=== PATIENT | female | born 1955 | race Two or more races ===

== ENCOUNTER 2017-11-09 12:02 | Outpatient (CLI) | payer OTHER ==
[~2017-11-09 12:02] MED LIST: ETODOLAC200 MG PO; EVISTA60 MG PO; LIRICA; ULTRACET
== END 2017-11-13 12:30 | disposition home or self-care (01) ==
LOC: RAD 12:02
DX: R10.32 Left lower quadrant pain (principal); K57.30 Diverticulosis of large intestine without perforation or abscess without bleeding; K59.04 Chronic idiopathic constipation

== ENCOUNTER 2018-04-04 06:12 | Day surgery (SDC) | payer OTHER | END 2018-04-04 10:25 | disposition home or self-care (01) | LOC: AMB-ENDOS 06:12 | DX: D12.2 Benign neoplasm of ascending colon (principal); D12.3 Benign neoplasm of transverse colon ==

== ENCOUNTER 2022-03-09 10:45 | Inpatient (IN) | payer OTHER ==
[~2022-03-09] VITALS: Ht 154.9 cm; Wt 48.5 kg
[~2022-03-09 10:45] MED LIST changes: +CIPRO500 MG PO; +DICY20TA PO; +METRONIDAZOLE500 MG PO
[2022-03-09] MEDS ORDERED: D3 + K2 DOTS 11 EACH PO (13:11)
[2022-03-09] MEDS ORDERED: NAPROSYN125 MG/5 M PO (13:11)
[2022-03-09] MEDS ORDERED: CANABIS (13:11)
[2022-03-09] MEDS ORDERED: PRAVASTATIN SOD20 MG PO (13:12)
[2022-03-11] MEDS ORDERED: GABAPENTIN800 M1 (13:50)
[2022-03-11] MEDS ORDERED: SERTRALINE HCL50 MG (13:50)
[2022-03-15] MEDS ORDERED: HYOSCYAMINE0.125 M1 SL (13:19)
[2022-03-15] MEDS ORDERED: PERCOCET 5-3251 EACH PO (13:19)
[2022-03-15] MEDS ORDERED: PEPCID AC20 MG PO (13:20)
== END 2022-03-15 17:08 | disposition home or self-care (01) | DRG 331 ==
LOC: SURH 03-11 08:52 → O/R 03-11 08:52 → SURH 03-11 10:45
PROVIDERS: ADMIT Surgery; ATTEND Surgery
PROC: 0DBP4ZZ Excision of Rectum, Percutaneous Endoscopic Approach (ICD-10-PCS; 2022-03-11)
PROC: 0DJD8ZZ Inspection of Lower Intestinal Tract, Via Natural or Artificial Opening Endoscopic (ICD-10-PCS; 2022-03-11)
PROC: 0DTN4ZZ Resection of Sigmoid Colon, Percutaneous Endoscopic Approach (ICD-10-PCS; principal; 2022-03-11 15:30)
DX: K57.30 Diverticulosis of large intestine without perforation or abscess without bleeding (principal); K59.04 Chronic idiopathic constipation; N73.6 Female pelvic peritoneal adhesions (postinfective); N99.4 Postprocedural pelvic peritoneal adhesions; E78.5 Hyperlipidemia, unspecified; M79.7 Fibromyalgia; Z20.822 Contact with and (suspected) exposure to COVID-19

== ENCOUNTER 2022-04-25 07:02 | Emergency (ER) | payer OTHER ==
[~2022-04-25] VITALS: Ht 154.9 cm; Wt 49.4 kg
[~2022-04-25 07:02] MED LIST changes: +CANABIS; +D3 + K2 DOTS 11 EACH PO; +GABAPENTIN800 M1; +HYOSCYAMINE0.125 M1 SL; +NAPROSYN125 MG/5 M PO; +PEPCID AC20 MG PO; +PERCOCET 5-3251 EACH PO; +PRAVASTATIN SOD20 MG PO; +SERTRALINE HCL50 MG
== END 2022-04-25 13:52 | disposition home or self-care (01) ==
LOC: ER 07:02
DX: K62.5 Hemorrhage of anus and rectum (principal); I10 Essential (primary) hypertension

== ENCOUNTER → 2022-05-04 08:04 | Outpatient (CLI) | payer OTHER | END | disposition home or self-care (01) | LOC: LAB 08:04 | PROVIDERS: ATTEND Radiology Diagnostic Radiology | DX: R10.32 Left lower quadrant pain (principal) ==

== ENCOUNTER 2022-05-04 10:09 | Outpatient (CLI) | payer OTHER | END 2022-05-04 10:12 | disposition home or self-care (01) | LOC: TOM 10:09 | PROVIDERS: ATTEND Colon & Rectal Surgery | DX: D12.2 Benign neoplasm of ascending colon (principal); R10.32 Left lower quadrant pain | CPT/HCPCS: 74177; Q9965 ==

== ENCOUNTER 2022-06-07 06:40 | Day surgery (SDC) | payer OTHER | END 2022-06-07 12:25 | disposition home or self-care (01) | LOC: AMB-ENDOS 06:40 → CIR.AMB 08:45 → AMB-ENDOS 12:25 | PROVIDERS: ATTEND Surgery | DX: D12.3 Benign neoplasm of transverse colon (principal); K57.30 Diverticulosis of large intestine without perforation or abscess without bleeding; D12.2 Benign neoplasm of ascending colon; R10.32 Left lower quadrant pain; K59.04 Chronic idiopathic constipation; K62.4 Stenosis of anus and rectum; Z20.822 Contact with and (suspected) exposure to COVID-19 ==

== ENCOUNTER 2022-06-14 07:17 | Outpatient (CLI) | payer OTHER | END 2022-06-14 07:18 | disposition home or self-care (01) | LOC: NUCLEAR 07:17 | PROVIDERS: ATTEND Internal Medicine Hematology & Oncology | DX: D18.00 Hemangioma unspecified site (principal) | CPT/HCPCS: 78215; A9541 ==

== ENCOUNTER 2023-01-19 11:33 | Emergency (ER) | payer OTHER ==
[~2023-01-19] VITALS: Ht 154.9 cm; Wt 48.5 kg
[2023-01-19] MEDS ORDERED: MELOXICAM15 MG (13:27)
[2023-01-19] MEDS ORDERED: BACLOFEN10 MG PO (13:27)
[2023-01-19 16:15] LABS: HEMATOCRIT 41.6 % (36.0-45.00); HEMOGLOBIN 14.2 g/dL (12.0-15.00); MEAN CELL VOLUME 86.1 fL (80.00-100.00); MEAN CORPUSCULAR HEMOGLOBIN 29.4 pg (27.00-32.0); MEAN CORPUSCULAR HGB CONC 34.2 g/dl (32.0-36.0); PLATELET COUNT 355 K/uL (150-450); RED BLOOD COUNT 4.83 M/uL (4.00-6.00); RED CELL DISTRIBUTION WIDTH 13.3 % (11.5-14.5)
[2023-01-19 17:00] LABS: BILIRUBIN TOTAL 0.5 mg/dL (0.3-1.2); CALCIUM 9.6 mg/dL (8.5-10.1); CREATININE SERUM 0.45 mg/dL (0.55-1.02); GFR 138.56; GLOBULINA 3.7 G/DL (2.4-3.5); POTASSIUM 3.6 mEq/L (3.5-5.1); TOTAL PROTEIN 7.7 gm/dL (6.4-8.2)
[2023-01-19 17:04] LABS: PH,URINE 6.5 (5.0-8.0); URINE APPEARANCE Clear; URINE BILIRRUBIN Negative (NEGATIVE); URINE BLOOD Trace; URINE COLOR Yellow; URINE GLUCOSE Negative (NEGATIVE); URINE LEUKOCYTE Negative; URINE NITRATE Negative; URINE PROTEIN Negative (NEGATIVE); URINE UROBILINOGEN 0.2 E.U./dl
[2023-01-19 17:05] LABS: URINE EPITHELIAL CELLS 1.9 uL (0.0-38.8); URINE RBC 12.6 uL (0.0-20.8)
[2023-01-19 17:14] LABS: URINE BACTERIA 2.5 uL (0.0-1933); URINE WBC 1.5 uL (0.0-23.2)
[2023-01-19] MEDS ORDERED: INTESTINEX680 M1 PO (21:49)
[2023-01-19] MEDS ORDERED: DICY20TA PO (21:49)
== END 2023-01-19 22:18 | disposition home or self-care (01) ==
LOC: ER 11:34
PROVIDERS: Emergency Medicine
DX: R10.9 Unspecified abdominal pain (principal); M79.7 Fibromyalgia; Z98.890 Other specified postprocedural states
CPT/HCPCS: 36415; 74177; 99284; Q9965